=== PATIENT | male | born 1940 | race Caucasian/White ===

== ENCOUNTER 2017-06-20 18:10 | Emergency (ER) | payer BC, MEDICAID ==
[~2017-06-20] VITALS: Ht 157.5 cm; Wt 64.9 kg
[2017-06-20 18:13] VITALS: BP 109/58; PULSE 79; RESP 19; TEMP 97.2; O2SAT 95
--- NOTE | 2017-06-20 18:19 | NUR ---
Placed in room 7 . 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 To gown for exam. Side rails up.Report given to gudelia PARIKH.
--- NOTE | 2017-06-20 18:25 | NUR ---
Patient brought in by BLS. Patient's daughter is at bedside with patient. Daughter reports that patient was sitting on front porch when he stood up and felt lightheaded. Patient says when he woke up his son was helping him down and neighbor was trying to talk to him. Patient denies KO. Patient just complains of generalized weakness. No other complaints/injuries per patient or as noted. Will continue to monitor
[2017-06-20] MEDS ORDERED: BISA5TAB10 PO (18:29)
[2017-06-20] MEDS ORDERED: GLU850 PO (18:29)
[2017-06-20] MEDS ORDERED: PRO40 PO (18:29)
[2017-06-20] MEDS ORDERED: CANA100T PO (18:29)
[2017-06-20] MEDS ORDERED: SITA100T7 PO (18:29)
[2017-06-20] MEDS ORDERED: LENA2.5C PO (18:29)
[2017-06-20] MEDS ORDERED: CALC500T51 PO (18:29)
[2017-06-20] MEDS ORDERED: ASPI-1063 PO (18:29)
[2017-06-20] MEDS ORDERED: DEXA4TAB PO (18:29)
--- NOTE | 2017-06-20 18:29 | NUR ---
Medication reconciliation completed with information provided by Patient. Any prior medication reconciliation on file was reviewed and corrected.
[2017-06-20 18:52] LABS: BILIRUBIN,URINE NEGATIVE (NEGATIVE); BLOOD, URINE NEGATIVE (NEGATIVE); CLARITY/URINE CLEAR (CLEAR); COLOR,URINE YELLOW (YELLOW); GLUCOSE,URINE 3+ (NEGATIVE); KETONES,URINE NEGATIVE (NEGATIVE); LEUKOCYTE ESTERASE ,URINE NEGATIVE (NEGATIVE); NITRITE, URINE NEGATIVE (NEGATIVE); PROTEIN URINE TRACE (NEGATIVE); UROBILINOGEN,URINE 0.2 (0.2-1.0)
[2017-06-20 18:53] LABS: BASOPHILS % (AUTO) 0.8 % (0.0-2.0); EOSINOPHILS # (AUTO) 0.4 K/uL (0.0-0.4); EOSINOPHILS % (AUTO) 7.6 % (0.0-4.0); HEMATOCRIT 35.6 % (36-54); HEMOGLOBIN 11.8 g/dL (14.0-18.0); LYMPHOCYTES # (AUTO) 0.5 K/uL (1.0-5.5); LYMPHOCYTES % (AUTO) 9.9 % (20.5-51.5); MEAN CORPUSCULAR HEMOGLOBIN 31 pg (27-31); MEAN CORPUSCULAR HGB CONC 33 % (32-36); MEAN CORPUSCULAR VOLUME 93 fL (79.0-98.0); MONOCYTES # (AUTO) 0.4 K/uL (0.0-1.0); NEUTROPHILS # (AUTO) 3.7 K/uL (1.8-7.7); NEUTROPHILS % (AUTO) 73.7 % (40.0-70.0); PLATELET COUNT (AUTO) 113 K/uL (130-430); RED BLOOD CELL COUNT(AUTO) 3.85 MIL/uL (4.2-6.2); RED CELL DISTRIBUTION WIDTH 15.7 % (9.0-15.0)
[2017-06-20 18:53] LABS: BACTERIA,URINE FEW /HPF (None Seen); MUCUS,URINE None Seen /LPF (None Seen); RBC,URINE NONE SEEN /HPF (0-3); WBC,URINE 0-3 /HPF (0-3)
[2017-06-20 18:57] LABS: BARBITURATE, URINE NEGATIVE (NEG <=200); BENZODIAZEPINE, URINE NEGATIVE (NEG <=150); CANNABINOID, URINE NEGATIVE (NEG <=50); COCAINE, URINE NEGATIVE (NEG <=150); METHAMPHETAMINES SCREEN,URINE NEGATIVE (NEG <=500); OPIATE, URINE NEGATIVE (NEG <=100); PHENCYCLIDINE SCREEN,URINE NEGATIVE (NEG <=25); UR TRICYCLIC ANTIDEPRESSANTS NEGATIVE (NEG <=300); URINE AMPHETAMINE NEGATIVE (NEG <=500); URINE METHADONE NEGATIVE (NEG <=200); URINE OXYCODONE SCREEN NEGATIVE (NEG <=100); URINE PROPOXYPHENE SCREEN NEGATIVE (NEG <=300)
[2017-06-20 19:05] LABS: ANION GAP 8 (5-15); CALCIUM 8.5 mg/dL (8.4-11.0); CHLORIDE 109 mmol/L (98-107); CREATININE 0.64 mg/dL (0.55-1.30); GLUCOSE 151 mg/dL (70-99); POTASSIUM 3.3 mmol/L (3.5-5.1); SODIUM SERUM 140 mmol/L (136-145); UREA NITROGEN, BLOOD 17 mg/dL (8-21)
[2017-06-20 19:07] LABS: PROTHROMBIN TIME 10.4 SECS (9.5-12.5)
--- NOTE | 2017-06-20 19:10 | NUR ---
EKG performed at BS by TUYET Guevara. Physician given copy of EKG for review.
[2017-06-20 19:22] LABS: ALANINE AMINOTRANSFERASE 21 U/L (12-78); ALBUMIN 3.2 g/dL (3.4-4.8); ASPARTATE AMINOTRANSFERASE 11 U/L (10-37); FREE T4 (FREE THYROXINE) 0.9 ng/dL (0.6-1.6); TOTAL BILIRUBIN 0.5 mg/dL (0.0-1.0)
[2017-06-20 19:27] LABS: ALCOHOL, BLOOD < 3 mg/dL (<10)
[2017-06-20] MEDS ORDERED: POTASSIUM CHLORIDE 20 MEQ TAB.PRT.SR PO ONE (19:30)
--- NOTE | 2017-06-20 19:58 | NUR ---
DMV Report filed and faxed to [phone].
--- NOTE | 2017-06-20 20:37 | NUR ---
Patient resting quietly. No acute distress noted. Vital signs within normal range. Family at bedside.
[2017-06-20 21:53] VITALS: BP 109/58; PULSE 79; RESP 19; TEMP 97.2; O2SAT 95
--- NOTE | 2017-06-20 21:53 | NUR ---
Patient given written and verbal discharge instructions and verbalizes understanding. ER MD discussed with patient the results and treatment provided. Patient in stable condition. ID arm band removed. IV catheter removed intact and dressing applied, no active bleeding. No Rx given. Patient educated on pain management and to follow up with PMD in 2-3 days. Pain Scale 0/10 Opportunity for questions provided and answered.
== END 2017-06-20 21:53 | disposition home or self-care (01) ==
LOC: SED 18:10
DX: R55 Syncope and collapse (principal); I10 Essential (primary) hypertension; E11.9 Type 2 diabetes mellitus without complications; Z79.899 Other long term (current) drug therapy
CPT/HCPCS: 36415; 70450; 71010; 74000; 80053; 80307; 81000; 82140; 83605; 83880; 84439; 84484; 85025; 85610; 87040; 93005; 99285; G0482